=== PATIENT | female | born 1955 | race Caucasian/White ===

== ENCOUNTER → 2020-07-20 | Outpatient (CLI) | payer OTHER ==
[~2020-07-20] MED LIST: AMLODIPINE BESY10 MG PO; BIOTIN1000 MCG PO; CALCIUM 500 +1 EAC4 PO; CO-ENZYME Q-1010 MG PO; FISH OIL 1,0001 EAC9 PO; LEVOTHYROXINE50 MCG PO; LIPITOR 40 MG T40 M1 PO; METOPROLOL SUC100 MG PO; OMEPRAZOLE40 MG PO; PNV 29-1 TABLE1 EACH PO; SELENIUM200 MC1 PO; SERTRALINE HCL100 MG PO; TRAMADOL 50 MG50 MG PO; ZYRTEC10 M5 PO
== END ==
LOC: LAB 12:05
PROVIDERS: ATTEND Orthopaedic Surgery
DX: Z20.822 Contact with and (suspected) exposure to COVID-19 (principal)

== ENCOUNTER 2020-07-21 10:00 | Inpatient (IN) | payer OTHER ==
[~2020-07-21] VITALS: Ht 165.1 cm; Wt 67.1 kg
--- NOTE | ~2020-07-21 | O ---
[facility] [place] [address] OPERATIVE REPORT Name: SARAH BATISTA Room #: 439-P [facility] IN M.R.#: [id number] Admission: 07/21/20 Attend Phys: Hiren Ritter MD Discharge: 07/25/20 Date of : 53 Report #: [id number] THIS REPORT FOR: cc: MAURY - Maru family physician/PCP FAM - No family physician/PCP Hiren Ritter MD ~ DATE OF SERVICE: 07/23/2020 PREOPERATIVE DIAGNOSIS: Infected right hip trochanteric plate with abscess. POSTOPERATIVE DIAGNOSIS: Infected right hip trochanteric plate with abscess. PROCEDURE: I and D, right hip with hardware removal of the trochanteric deputy brand inspector plate and cerclage cables. SURGEON: Hiren Ritter MD. RAILROAD WATCHMAN: Nissa Klein PA-C. ANESTHESIA: LMA. SPECIMENS: Intraoperative cultures. ESTIMATED BLOOD LOSS: 50 mL. CONDITION UPON LEAVING THE OPERATING ROOM: Stable. INDICATIONS FOR PROCEDURE: The patient is a female who is about 2 or so years out from a right total hip arthroplasty. This was complicated by a periprosthetic fracture treated with a trochanteric deputy brand inspector plate. She has had increased swelling in her right hip with opening of the wound and drainage. It was felt that she had an infection around her trochanteric deputy brand inspector plate. After discussion with her, she elected for I and D of her hip with hardware removal of the troch deputy brand inspector plate. DESCRIPTION OF PROCEDURE: Risks, benefits, alternatives, complications were discussed in detail with the patient including but not limited to risk of anesthesia, risk of damage to nerves, arteries, blood vessels, risk for infection, bleeding, risk for continued hip pain and need for reoperation. Informed consent was obtained from the patient. Right hip was appropriately marked in the preoperative holding area. Antibiotics were held until intraoperative cultures were obtained. She was brought to the operating room and placed in supine position on operating room table. LMA anesthesia was induced without complication. She was placed in the left lateral decubitus position with the right hip uppermost. Right hip and lower extremity were [facility] [address] [place] [address] OPERATIVE REPORT Name: SARAH BATISTA Room #: 439-P [facility] IN M.R.#: [id number] Admission: 07/21/20 Attend Phys: Hiren Ritter MD Discharge: 07/25/20 Date of : 53 Report #: [id number] prepped and draped in normal sterile fashion. Timeout was performed properly identifying the patient and procedure as well as instrumentation. All in the operating room were in agreement. The previous scar was then opened with a 10 blade and dissection was taken down to the IT band. There was a moderate amount of fluid and cultures of this were taken. IT band was opened and the trochanteric deputy brand inspector plate was identified, dissected out. The cables were cut and troch plate was removed. The wound was explored and this did feel to be superficial and just involving the trochanteric deputy brand inspector plate. Cultures of the bone were also taken. Wound was thoroughly irrigated with normal saline. Deep drain was placed. Fascia was closed with 0 Vicryl, skin was closed with 2-0 Vicryl, skin staple and a CAM dressing was applied. The patient tolerated this procedure well and went to recovery room under care of anesthesia postoperatively. By: 1412 1441 Hiren Ritter MD /nt
[~2020-07-21 10:00] MED LIST changes: -TRAMADOL 50 MG50 MG PO
[2020-07-21 10:06] VITALS: BP 135/61
[2020-07-21] MEDS ORDERED: TRAMADOL 50 MG50 MG PO (10:34)
[2020-07-21 10:49] LABS: ABSOLUTE NEUTROPHILS 6.2 thou/uL (1.4-8.2); EOSINOPHILS 3.1 % (0.0-3.0); HEMATOCRIT 41.2 % (37.0-47.0); HEMOGLOBIN 13.7 gm/dL (12.0-15.0); LYMPHOCYTES 14.9 % (24.0-44.0); MCH 28.2 pg (26.0-34.0); MCHC 33.3 g/dL (28.0-37.0); MCV 84.5 fL (80.0-100.0); MONOCYTES 7.3 % (1.0-8.0); PLATELET COUNT 205 thou/uL (150-400); POLYS 73.7 % (36.0-66.0); RBC 4.87 mil/uL (4.20-5.00); RDW 14.8 % (10.5-14.5); WBC 8.4 thou/uL (4.0-11.0)
[2020-07-21 11:02] LABS: CALCIUM 9.5 mg/dL (8.5-10.1); CREATININE 0.8 mg/dL (0.6-1.0); POTASSIUM 4.4 mmol/L (3.5-5.1)
[2020-07-21 11:08] LABS: ALBUMIN 3.9 g/dL (3.4-5.0); TOTAL BILIRUBIN 0.4 mg/dL (0.2-1.0); TOTAL PROTEIN 7.6 g/dL (6.4-8.2)
[2020-07-21 11:32] VITALS: BP 135/61
[2020-07-21 11:50] VITALS: BP 135/72
[2020-07-21 13:11] VITALS: BP 138/77
[2020-07-21 15:50] VITALS: BP 108/63
[2020-07-21 20:28] VITALS: BP 142/68
--- NOTE | 2020-07-22 03:02 | NUR ---
ASSUMED CARE OF PT AT 1900. PT IS A/O X4 AND IS UP AD FATEMEH TO THE BR. ROOM AIR. VOIDS PER TOILET, NO BM THIS SHIFT. VSS. DENIES C/O PAIN OR DISCOMFORT. WOUND TO RIGHT HIP REMAINS OPEN TO AIR WITH YELLOW/PINK DRAINAGE NOTED. CALLS OUT APPROPRIATELY. WILL CONTINUE TO MONITOR. ABX HELD AT REQUEST OF PHYSCIAN UNTIL AFTER SURGERY ON THURSDAY TO REMOVE HARDWARE TO RIGH HIP.
[2020-07-22 07:57] VITALS: BP 143/73
[2020-07-22 16:28] VITALS: BP 153/76
--- NOTE | 2020-07-22 19:07 | NUR ---
ASSUMED CARE OF PT AT 0700 THIS MORNING. PT WAS A&OX4, SLEEPING PRIOR TO REPORT. SKING W/D/P, INTACT WITH LESION ON LATERAL RT THIGH. YELLOW/CLEAR DRAINAGE FROM WOUND. REDNESS IN THE SIGHT WITH ODOR. PT AMBUALTES WELL AND IT UP AT FATEMEH. IV IN LT FA SL. ASSESSMENT OTHERWISE UNREMARKABLE. CALL LIGHT WITHIN REACH OF PT.
[2020-07-22 20:20] VITALS: BP 145/75
--- NOTE | 2020-07-22 23:24 | NUR ---
ASSESSED AT START OF SHIFT. PT A&OX4. DENIES PAIN, N/V. UP ADLIB TO THE BATHROOM. IV INTACT AND ABX GIVEN. RIGHT HIP WOUND BAKARI. PT NPO AT MIDNIGHT FOR SX TOMORROW. NO FURTHER SIGNS OF DISCOMFORT WILL CONT TO MONITOR.
[2020-07-23 04:40] VITALS: BP 140/61
[2020-07-23 07:25] VITALS: BP 153/82
--- NOTE | 2020-07-23 07:36 | EKG ---
[address] [address] ELECTROCARDIOGRAM REPORT Name: SARAH BATISTA Room #: 439-P [facility] [place] IN M.R.#: [id number] Admission: 07/21/20 Attend Phys: Hiren Ritter MD Discharge: Date of : 53 Report #: [id number] [facility] ED Test Date: 2020-07-21 Test Time: 10:47:30 Pat Name: SARAH BATISTA Department: Room: 43 Gender: F Circuit Board Assembler: keila : [id number] Requested By: Elijah Castorena Order Number: [id number] MD: Mohit Rojas Measurements Intervals [place] Rate: 67 P: 49 GA: 161 QRS: 46 QRSD: 102 T: 50 QT: 418 QTc: 442 Interpretive Statements Sinus rhythm No previous ECG available for comparison Electronically Signed On 07-23-2020 7:36:41 MORPHOLOGIST by Mohit Rojas [email or web address] <ELECTRONICALLY SIGNED> By: Mohit Rojas MD, [facility] 07/23/20 0736 1047 1047 Mohit Rojas MD, FACC /EPI
--- NOTE | 2020-07-23 13:58 | NUR ---
ASSUMED CARE OF PT AT 0700 THIS MORNING. PT IS GOING TO SURGERY AT 1400 TODAY AND IS NPO. PT IS A&OX4, EYES PERRL, SKIN W/P/D, REDNESS AND DRAINAGE IN THE LATERAL RT THIGH FROM INFECTION. SKIN IS OTHERWISE INTACT. LUNGS CLEAR ALL LLANES, POULTRY CLEANER STRONG, =, DISTAL PULSES PRESENT, STRONG AND REGULAR. PT STATED NO PAIN AND IS READY FOR SURGERY. PT AMBULATES INDEPENDENTLY WITH NO ISSUES. PRIORITY MEDS ONLY GIVEN DUE TO NPO STATUS. ASSESSMENT OTHERWISE UNREMARKABLE. CALL LIGHT WITHIN REACH OF PT.
--- NOTE | 2020-07-23 16:18 | NUR ---
Chart reviewed and case discussed with the care team. Pt in surgery today for I/D and hardware removal d/t infected rt REBEKAH from 2018. The pt had a rt REBEKAH with [facility] in [facility] with Dr. Ritter in 2018. She is indep with gait and adl's and lives independently in [place], [place]. She was seen in the office and then in the ER over the weekend and started on iv atb. Covid pre op test negative. Will reassess postop for any dc planning needs: hh/snf/or iv infusion. DC needs are uncertain pending her plan of care care. Will follow along.
--- NOTE | 2020-07-23 16:38 | NUR ---
FAXED REFERRAL TO [facility] AND [facility] TO CHECK BENEFITS FOR HOME IV ABX,.
[2020-07-23 17:30] VITALS: BP 128/97
--- NOTE | 2020-07-23 18:57 | NUR ---
PATIENT ARRIVED TO UNIT FROM HARDWARE REMOVAL SX AT APPROX 1745. VITAL SIGNS STABLE, PAIN VOICED AT 6. PRN PAIN MED ADMINISTERED. FLUIDS INFUSING ON L WRIST W NO ISSUES. TOLERATED DINNER WELL W NO ISSUES. VOICED NO OTHER NEEDS. WILL ENDORSE TO NOC RN
[2020-07-23 20:05] VITALS: BP 120/73
[2020-07-24 00:34] VITALS: BP 118/70
--- NOTE | 2020-07-24 04:56 | NUR ---
RECIEVED CARE OF THIS PATIENT AT 1900. C/O PAIN, MED GIVEN. USES BEDPAN. DRESSING ON R HIP D/I. HAS HEMAVAC TO INCISION ON R HIP. IV PATENT WITH FLUIDS INFUSING. PATIENT ALERT AND ORIENTED X4. SLEPT OFF AND ON DURING NIGHT.
[2020-07-24 05:04] LABS: HEMATOCRIT 36.6 % (37.0-47.0); HEMOGLOBIN 12.3 gm/dL (12.0-15.0); MCH 28.6 pg (26.0-34.0); MCHC 33.7 g/dL (28.0-37.0); MCV 84.9 fL (80.0-100.0); RBC 4.31 mil/uL (4.20-5.00); RDW 14.2 % (10.5-14.5); WBC 10.3 thou/uL (4.0-11.0)
[2020-07-24 08:21] VITALS: BP 133/70
--- NOTE | 2020-07-24 11:27 | NUR ---
ASSUMED PT CARE THIS AM. PT VSS, A&OX4. PT PLEASANT, MAKES NEEDS KNOWN. REPORTS PAIN IN THE RIGHT HIP, RESPONDED WELL TO PAIN MEDS GIVEN PER EMAR. IV PATENT, MEDS INFUSING WELL. WORKED WITH PHYSICAL THERAPY TODAY. DRESSING ON RIGHT HIP. ON ROOM AIR. TOOK MEDS WHOLE WITHOUT COMPLAINT. REMAINS CONTINENT, CALLING APPRO[PRIATELY WHEN NEEDED. ICE PACK TO RIGHT HIP. FALL PRECAUTIONS IN PLACE.
--- NOTE | 2020-07-24 13:44 | NUR ---
VAT CONSULTED FOR PICC PLACEMENT. RIGHT UPPER BASILIC PICC TRIMMED 44CM WITH 0CM EXTERNAL. TIP LOCATION VERIFIED WITH [employer]. PT TOLERATED WELL. RELEASED FOR USE, PER HOSPITAL POLICY.
--- NOTE | 2020-07-24 14:08 | NUR ---
ON-GOING ASSESSMENT: CM REVIEWED CHART AND SPOKE WITH PATIENT. PT WORKED WITH PHYSICAL THERAPY TODAY AND THEY ARE STATING PT CAN LIKELY RETURN HOME WITH HH. CM SPOKE WITH PT. PT HAD PICC LINE PLACED TODAY AND CM DISCUSSED LIKELY NEED FOR HOME IV INFUSION. PT HAS NO PREFERENCE OF INFUSION COMPANY. PER ACCOUNT EXECUTIVE SALES REPRESENTATIVE NOTE FROM PREVIOUS DAY REFERRAL WAS SENT TO [facility]. CM SPOKE WITH GABY VENEGAS AT [facility] WHO REPORTS SHE DOES NOT SEE REFERRAL. CM REFAXED INFORMATION AND AWAITING INOUT AT THIS TIME. CM DISCUSSED HOME HEALTH AND REPORTS HAVING [facility] IN THE PAST AND PREFERS THEM AGAIN. CM FAXED REFERRAL TO [facility]. PER ID NOTE WE ARE AWAITING FINAL CULTURES FOR FINAL RECS. CM WILL CONTINUE TO FOLLOW TO ASSIST NEEDED.
[2020-07-24 16:41] VITALS: BP 136/62
[2020-07-24 20:05] VITALS: BP 129/63
[2020-07-24 20:18] VITALS: BP 118/69
--- NOTE | 2020-07-25 04:16 | NUR ---
RECEIVED CARE OF THIS PATIENT AT 1900. PATIENT ALERT AND ORIENTED X4. HAS SCD'S ON. DRESSING ON R HIP D/I. HAS JET PICC. GETS UP WITH ASSIST. C/O PAIN, MED GIVEN. SLEPT MOST OF NIGHT.
[2020-07-25 07:45] VITALS: BP 138/75
[2020-07-25 07:45] LABS: HEMATOCRIT 33.3 % (37.0-47.0); HEMOGLOBIN 11.2 gm/dL (12.0-15.0); MCH 28.9 pg (26.0-34.0); MCHC 33.7 g/dL (28.0-37.0); MCV 85.7 fL (80.0-100.0); RBC 3.89 mil/uL (4.20-5.00); RDW 14.4 % (10.5-14.5); WBC 6.8 thou/uL (4.0-11.0)
--- NOTE | 2020-07-25 10:52 | NUR ---
ASSUMED PT CARE THIS AM. PT VSS, A&OX4. REPORTS PAIN OF A 4-5, DENYING ANY PAIN MEDICATION AT THIS TIME. WORKED WITH PHYSICAL THERAPY TODAY. ON ROOM AIR. IV PATENT BOTH PERIPHERAL AND PICC. UP WITH WALKER TO BATHROOM. TOOK MEDS WHOLE WITHOUT ISSUE. FALL PRECAUTIONS IN PLACE. MAKES NEEDS KNOWN.
--- NOTE | 2020-07-25 11:49 | HC ---
[facility] [place] [address] CONSULTATION Name: SARAH BATISTA Room #: 439-P AD[facility] IN M.R.#: [id number] Admission: 07/21/20 Attend Phys: Hiren Ritter MD Discharge: Date of : 53 Report #: [id number] THIS REPORT FOR: cc: FAM - No family physician/PCP FAM - No family physician/PCP Tony Pa MD ~ DATE OF SERVICE: 07/24/2020 INFECTIOUS DISEASE CONSULTATION ATTENDING PHYSICIAN: Dr. Ritter. REASON FOR EVALUATION: Right total hip arthroplasty infection. HISTORY OF SUBJECTIVE: Chart reviewed, the patient examined. This is a 65-year-old who sustained a right hip fracture several years ago, ultimately need a replacement in 2018. Postop course was fairly unremarkable; however, over the course of the last month, she had experienced increasing discomfort associated with the right hip and thigh, became quite hard and 2 days prior to admission, had erupted and started drainage. She was recommended to come in and underwent extraction of the right hip on 07/23. She notes did have a significant localizing pain, although was not systemically ill. Denies any fevers or chills. Appetite has been satisfactory. No pulmonary or gastrointestinal related complaints. She is started on therapy with Unasyn, single dose of vancomycin. Cultures thus far have been unrevealing including the blood as well as an abscess culture. ALLERGIES: SULFA, CODEINE. CURRENT MEDICATIONS: Aspirin, enoxaparin, docusate sodium, hydroxyzine, hydrocodone, sennosides, zolpidem, metoclopramide, promethazine, atorvastatin, amlodipine, sertraline, metoprolol, levothyroxine, Unasyn. PAST MEDICAL HISTORY: Reflux, hypertension, hyperlipidemia, hypothyroidism, fatty liver, depression. SOCIAL HISTORY: Smokes cigarettes, occasional ethanol, no illicit drug use. FAMILY HISTORY: Noncontributory. REVIEW OF SYSTEMS: Otherwise unremarkable 10-point review of systems. PHYSICAL EXAMINATION: GENERAL: She appears somewhat undernourished. She is pleasant, cooperative. She is lucid. [facility] [address] [place] [address] CONSULTATION Name: SARAH BATISTA Danyelle Room #: 439-P [facility].#: [id number] Admission: 07/21/20 Attend Phys: Hiren Ritter MD Discharge: Date of : 53 Report #: [id number] VITAL SIGNS: Temperature 97.7, pulse 73, respirations 16, blood pressure 133/70. SKIN: Warm, dry, no rashes. HEENT: Normocephalic. Extraocular muscles are intact. NECK: Supple. LUNGS: Few scattered crackles at the bases. HEART: Regular. I do not appreciate any murmur. ABDOMEN: Soft, nontender, nondistended. EXTREMITIES: Right hip has a surgical dressing in place. The drain has been removed. Appears to be dry and intact. AND RECTAL: Deferred. LABORATORY DATA: CBC from this morning white count 10.3, H and H 12.3 and 36.6, platelets of 200. Review of the operative report noted some devitalized tissue, trochanteric rack puller plate was removed. Blood cultures sterile thus far. Sed rate of 23. Electrolytes: Sodium 138, potassium 4.4, chloride 104, bicarbonate 25, anion gap of 9, BUN and creatinine 9 and 0.8, glucose of 102. LFTs unremarkable. Albumin 3.9, total protein 7.6. ASSESSMENT: Right hip infection is not entirely clear as to the etiology. Agree with empiric therapy. Continue Unasyn. She did note she has labs on her dental care and would suspect more of a typical bacteremic seeding of the site associated hardware. We will plan on extended period of IV antibiotics at this point. We will await culture results go ahead and arrange for PICC placement. Encourage incentive spirometry. <ELECTRONICALLY SIGNED> By: Tony Pa MD 07/25/20 1149 1101 1242 Tony Pa MD /nt
[2020-07-25] MEDS ORDERED: COLACE 100 MG100 MG PO (12:47)
[2020-07-25] MEDS ORDERED: TRAMADOL 50 MG50 MG PO (12:47)
[2020-07-25] MEDS ORDERED: BAYER CHEWABLE81 MG PO (12:47)
[2020-07-25] MEDS ORDERED: SENNA8.6 MG PO (12:47)
[2020-07-25] MEDS ORDERED: HYDROCODON-ACE1 EAC7 PO (12:47)
[2020-07-25] MEDS ORDERED: UNASYN 3 GM VIAL3 G1 IVPB (12:47)
[2020-07-25] MEDS ORDERED: AMBIEN 5 MG TABL5 M1 PO (12:47)
--- NOTE | 2020-07-25 15:05 | NUR ---
ON-GOING ASSESSMENT: CM REVIEWED CHART AND SPOKE WITH PATIENT THE BEDSIDE. [facility] IS FOLLOWING PATIENT AND IN NETWORK WITH HER INSURANCE. ([facility] THE OTHER REFERRAL SENT WAS TIER 2 FOR PATIENT AND WOULD OF COST MORE). PT WANTED TO GO WITH [facility]. CM SPOKE WITH DR. MADRID FROM ID AND [facility] AND FINAL REC FOR IV ANBX IS UNASYN 3GM IV Q 8. CM NOTIFIED [facility] AND COST IN PREVIOUS NOTE WAS DISCUSSED WITH PATIENT AND SHE IS AGREEABLE AND STATING SHE CAN AFFORD THAT. RUBI GRIFFIN CAME TO DO BEDSIDE TEACHING WITH PT AT 1400 AND PT CONFIRMED UNDERSTANDING. PTS SISTER WAS ALSO PRESENT FOR BEDSIDE TEACHING. CM FAXED CLINICAL TO [facility] INCLUDING SCRIPT FOR IV ANBX WELL PICC PLACEMENT. CM ALSO NOTIFIED [facility] OF POSSIBLE DISCHARGE TODAY OR TOMORROW. AWAITING [facility]THO TO ROUND HOSPITALIST STATING THEY ARE THE ATTENDING AND WILL COMPLETE DISCHARGE ORDERS. IF PATIENT IS ABLE TO DISCHARGE TODAY PLEASE FAX DISCHARGE PAPERWORK TO [facility] FAX:[phone] AND CONTACT RUBI GRIFFIN AT [phone]. ALSO CONTACT [facility]:[phone] AND FAX DISCHAREG PAPERWORK TO THEIR FAC:[phone].
[2020-07-25 16:04] VITALS: BP 134/64
[2020-07-25 16:52] VITALS: BP 134/64
--- NOTE | 2020-07-26 08:51 | NUR ---
LATE ENTRY FROM 07/25: PT DISCHARGED HOME WITH HOME HEALTH. [facility] WAS NOTIFIED AND FAXED DISCHARGE PAPERWORK. GABY AT [facility] WAS ALSO NOTIFIED OF DISCHARGE AND DISCHARGE PAPERWORK WAS FAXED. PATIENT HAD CONTACT FOR GABY AT [facility] TO CALL WITH ANY QUESTIONS AND EDUCATION/BEDSIDE TEACHING WAS COMPLETED FOR IV ANBX AT HOME. CM CONFIRMED WITH GABY AT [facility] THAT PT DISCHARGED AND THEY RECEIVED PAPERWORK [facility]LL [facility]. G[facility] RECEIVED A VM FROM PATIENT THIS AM 07/26 STATING SHE HAD TROUBLE GIVING HERSELF THE ANBX AND WONDERING IF [facility] CAN COME OUT. CM REACHED OUT TO GABY AT [facility] WHO REPORTS PATIENT NEVER CALLED HER WITH ANY ISSUES SO SHE IS GOING TO REACH OUT TO HER NOW. G[place]ENIA ALSO SPOKE WITH [facility] WHO REPORTS THEIR NURSE IS GOING OUT TO ASSIST HER [place].
== END 2020-07-25 18:10 | disposition home health service (06) | DRG 560 ==
LOC: ER 10:00 → 4S 11:50 → EROBS 11:52 → 4S 11:55
PROVIDERS: Emergency Medicine; ADMIT Orthopaedic Surgery; ATTEND Orthopaedic Surgery
DX: T84.51XA Infection and inflammatory reaction due to internal right hip prosthesis, initial encounter (principal); M00.9 Pyogenic arthritis, unspecified; L02.415 Cutaneous abscess of right lower limb; T84.090A Other mechanical complication of internal right hip prosthesis, initial encounter; F32.9 Major depressive disorder, single episode, unspecified; K21.9 Gastro-esophageal reflux disease without esophagitis; Z96.641 Presence of right artificial hip joint; I10 Essential (primary) hypertension; E78.5 Hyperlipidemia, unspecified; E03.9 Hypothyroidism, unspecified; E66.01 Morbid (severe) obesity due to excess calories; F17.210 Nicotine dependence, cigarettes, uncomplicated; Z60.2 Problems related to living alone; Z90.49 Acquired absence of other specified parts of digestive tract; Z68.24 Body mass index [BMI] 24.0-24.9, adult; Z88.6 Allergy status to analgesic agent; Z88.2 Allergy status to sulfonamides; Z71.6 Tobacco abuse counseling; Y83.8 Other surgical procedures as the cause of abnormal reaction of the patient, or of later complication, without mention of misadventure at the time of the procedure; Y92.89 Other specified places as the place of occurrence of the external cause
CPT/HCPCS: 10195; 27000; 50010; 50101; 50382; 50414; 51412; 53078; 56528; 57095; 57103; 62110; 62900; 70005

== ENCOUNTER 2020-07-27 13:26 | Emergency (ER) | payer OTHER ==
[~2020-07-27] VITALS: Ht 165.1 cm; Wt 67.1 kg
[~2020-07-27 13:26] MED LIST changes: +AMBIEN 5 MG TABL5 M1 PO; +BAYER CHEWABLE81 MG PO; +COLACE 100 MG100 MG PO; +HYDROCODON-ACE1 EAC7 PO; +SENNA8.6 MG PO; +TRAMADOL 50 MG50 MG PO; +UNASYN 3 GM VIAL3 G1 IVPB
[2020-07-27 14:44] VITALS: BP 130/59
== END 2020-07-27 14:46 | disposition home or self-care (01) ==
LOC: ER 13:26
DX: T82.898A Other specified complication of vascular prosthetic devices, implants and grafts, initial encounter (principal); T82.838A Hemorrhage due to vascular prosthetic devices, implants and grafts, initial encounter; K21.9 Gastro-esophageal reflux disease without esophagitis; I10 Essential (primary) hypertension; E03.9 Hypothyroidism, unspecified; E78.5 Hyperlipidemia, unspecified; F17.210 Nicotine dependence, cigarettes, uncomplicated; Z79.82 Long term (current) use of aspirin; Z79.899 Other long term (current) drug therapy; Z88.2 Allergy status to sulfonamides; Z88.5 Allergy status to narcotic agent